=== PATIENT | male | born 1980 | race Hispanic/Latino ===

== ENCOUNTER 2023-09-01 11:58 | Emergency (ER) | payer SELFPAY ==
[2023-09-01 12:23] LABS: #Basophils 0.04 10x3/uL (0.0-0.2); %Basophils 0.8 % (0.0-1.0); %Eosinophils 4.1 % (0.0-10.0); %Lymphocytes 37.1 % (21.0-51.0); %Monocytes 4.9 % (0.0-10.0); %Neutrophils 52.9 % (42.0-75.0); Hematocrit 40.9 % (42.0-52.0); Hemoglobin 14.5 g/dL (14.0-18.0); Mean Corpuscular HGB CONC 35.5 g/dL (32.0-36.0); Mean Corpuscular Hemoglobin 31.3 pg (27.0-31.0); Mean Corpuscular Volume 88.3 fL (78.0-98.0); Mean Platelet Volume 8.5 fL (7.4-10.4); Platelet Count 276 10x3/uL (130-400); RBC Distribution Width 13.6 % (11.5-14.5); Red Blood Cell (RBC) Count 4.63 mill/uL (4.70-6.10)
[2023-09-01 12:38] LABS: ALT (SGPT) 39 U/L (8-55); AST (SGOT) 37 U/L (5-34); Albumin 4.2 g/dL (3.5-5.0); Alkaline Phosphatase 86 U/L (40-110); Anion Gap 18 mmol/L (10-20); BUN (Urea Nitrogen) 11 mg/dL (8.9-20.6); Bilirubin, Total 0.5 mg/dL (0.2-1.2); Calc. Creatinine Clearance 0 mL/min (70-130); Calcium 9.3 mg/dL (7.8-10.44); Carbon Dioxide 25 mmol/L (22-29); Chloride 102 mmol/L (98-107); Estimated GFR 105; Globulin 3.9 g/dL (2.4-3.5); Glucose 106 mg/dL (70-105); Potassium 3.7 mmol/L (3.5-5.1); Protein, Total 8.1 g/dL (6.0-8.3); Sodium 141 mmol/L (136-145)
[2023-09-01 12:43] LABS: Troponin I Less than 0.010 ng/mL (< 0.028)
[2023-09-01] MEDS ORDERED: Pantoprazole 40 MG VIAL ONE (12:43)
[2023-09-01] MEDS ORDERED: Famotidine/PF 20 mg/2ml Vial ONE (12:43)
[2023-09-01 12:56] LABS: Lipase 23 U/L (8-78); Magnesium 2.1 mg/dL (1.6-2.6)
[2023-09-01 12:58] LABS: Acetaminophen Less than 10 mcg/mL (10.0-30.0); Alcohol 320.5 mg/dL (Less than 10); Salicylate Less than 8.0 mg/dL (15.0-30.0)
[2023-09-01 15:30] LABS: Troponin I Less than 0.010 ng/mL (< 0.028)
== END 2023-09-01 16:40 | disposition home or self-care (01) ==
LOC: ERS 11:58
DX: K29.20 Alcoholic gastritis without bleeding (principal); R07.9 Chest pain, unspecified; F10.129 Alcohol abuse with intoxication, unspecified
CPT/HCPCS: 36415; 71045; 80053; 80307; 83690; 83735; 84484; 85025; 93005; 96361; 96374; 96375; C9113; S0028